=== PATIENT | female | born 1985 | race Two or more races ===

== ENCOUNTER 2019-11-27 17:50 | Emergency (ER) | payer OTHER ==
[~2019-11-27] VITALS: Ht 157.5 cm; Wt 64.0 kg
--- NOTE | 2019-11-27 18:20 | NUR ---
PT HAS CO OF RED RASH ON HANDS, PT STATES SHE HAD HIVES ON SAT AM. FINGERS ARE PAINFUL. NOT IN RESP DISTRESS.
[2019-11-27] MEDS ORDERED: FAMOTIDINE 20 MG TABLET PO ONE (19:00)
[2019-11-27] MEDS ORDERED: FAMOTIDINE 20 MG TABLET ONE (19:04)
--- NOTE | 2019-11-27 19:11 | NUR ---
PT SITTING IN BED, CONNECTED TO BP AND O2 MONITORS. RESPIRATIONS EVEN AND UNLABORED, NO SIGNS OF DISTRESS. CALL LIGHT IN REACH, BED RAILS UP. WILL CONTINUE TO MONITOR.
[2019-11-27 19:12] VITALS: BP 109/68
--- NOTE | 2019-11-27 19:12 | NUR ---
PT DENIES ANY TROUBLE BREATHING, DENIES TONGUE OR THROAT SWELLING.
== END 2019-11-27 19:35 | disposition home or self-care (01) ==
LOC: ED 19:24
DX: L50.0 Allergic urticaria (principal); R11.10 Vomiting, unspecified
CPT/HCPCS: 99283; J7512